=== PATIENT | female | born 1995 | race American Indian/Alaskan Native ===

== ENCOUNTER 2017-01-19 21:58 | Outpatient (CLI) | payer OTHER, MEDICAID ==
[2017-01-19 22:15] VITALS: BP 128/77
[2017-01-19] MEDS ORDERED: LACTATED RINGERS 1,000 ML IV ONE (22:21)
[2017-01-19 23:43] LABS: Bilirubin,Urine NEG (Negative); Blood,Urine NEG (Negative); Ketones,Urine NEG (Negative); Leukocyte Esterase,Urine NEG (Negative); Nitrite,Urine NEG (Negative); Protein,Urine <15 mg/dL mg/dL (Negative); RBC,Urine < 1.0 /HPF (0.0-6.0); Urobilinogen,Urine < 2.0 mg/dL (<2.0)
[2017-01-19] MEDS: BRETHINE SUB-Q SCH (23:58)
[2017-01-20] MEDS: BRETHINE SUB-Q SCH (00:20)
== END 2017-01-20 00:45 | disposition home or self-care (01) ==
LOC: TRG 21:58
PROVIDERS: ATTEND Obstetrics & Gynecology
DX: Z34.93 Encounter for supervision of normal pregnancy, unspecified, third trimester (principal); Z3A.33 33 weeks gestation of pregnancy
CPT/HCPCS: 59025; 81001; 96360; 96361; 96372; J3105; J7120